=== PATIENT | female | born 1985 | race Caucasian/White ===

== ENCOUNTER → 2024-06-24 11:47 | Outpatient (REF) | payer BC, SELFPAY | LOC: RAD 11:47 | PROVIDERS: ATTENDING PHYSICIAN Nurse Practitioner Family | DX: R05.3 Chronic cough (principal) | CPT/HCPCS: 71046 ==

== ENCOUNTER → 2024-08-21 15:44 | Outpatient (REF) | payer BC, SELFPAY | LOC: PAVMRI 15:44 | PROVIDERS: ATTENDING PHYSICIAN Psychiatry & Neurology Neurology | DX: G43.909 Migraine, unspecified, not intractable, without status migrainosus (principal) | CPT/HCPCS: 70551 ==

== ENCOUNTER 2025-10-05 10:15 | Emergency (ER) | payer BC, SELFPAY ==
[2025-10-05 10:20] VITALS: BP 157/88; BMI 25.5
[2025-10-05 10:47] LABS: Hematocrit 33.3 % (37.0-47.0); Hemoglobin 10.7 g/dL (12.0-16.0); Mean Corp Hgb Conc. 32.1 g/dL (33.0-37.0); Mean Corpuscular Volume 63.3 fL (81.0-99.0); Nucleated Red Blood Cells % 0 %; Platelet Count 327 10^3/uL (130-400); Red Cell Dist. Width 16.3 % (11.5-14.5)
[2025-10-05 11:11] LABS: ALT (SGPT) 14 U/L (0-35); AST (SGOT) 20 U/L (14-36); Albumin 4.3 g/dl (3.5-5.0); Alkaline Phosphatase 42 U/L (38-126); Blood Urea Nitrogen 13 mg/dl (7-17); Calcium 9.4 mg/dl (8.4-10.2); Carbon Dioxide 28 mmol/L (22-30); Chloride 102 mmol/L (98-107); Estimated Creatinine Clearance 106 ml/min; Glucose 85 mg/dl (70-99); Lipase 47 U/L (23-300); Potassium 4.5 mmol/L (3.5-5.1); Sodium 133 mmol/L (135-145); Total Protein 7.3 g/dl (6.3-8.2); eGFR > 60.00
[2025-10-05 11:22] LABS: Troponin I < 0.012 ng/ml
--- NOTE | 2025-10-05 11:32 | ED.GENMED ---
History of Present Illness
General
Chief Complaint: Chest Pain
Source: patient
Exam Limitations: none
Time Seen by Provider: 10/05/25 11:01
History of Present Illness
History of Present Illness:
40yoF with a history of hypothyroidism, anemia, and mitral valve prolapse presenting for evaluation of chest pain. Symptoms began 3 days ago. She woke up in middle the night with nausea and dry heaving. Nausea has resolved but she continues to
have a central chest discomfort which is lingering. The discomfort is described as indigestion. Her pain radiates to the back. She has been taking Tums frequently at home without any significant improvement. She denies any shortness of breath,
fevers, leg swelling, calf pain. She called her PCP today and was told to go to the ED for evaluation.
Past History
Past History
ED Past Medical History: Psychiatric (ADHD), Other (Mitral valve prolapse) and Other (migraines)
ED Past Surgical History: Other (septoplasty, breast augmentation, tracheostomy as a )
Social History
Tobacco: Smoker
Alcohol: Occasional
Drug: None
Personal: Single
Living: with family
Employment: Employed
Family History
Family History: Other (No history of aortic dissection, PE or DVT); Negative Early CAD or CAD
Phy Exam
General Physical Exam
General Presentation: well appearing and no apparent distress
General age: appears stated age
General Skin: warm and dry
General Habitus: normal
General Mental: alert
ENT Exam
ENT Exam: normocephalic
Cardiovascular Exam
Cardiovascular Exam: regular rate/rhythm, no edema, no murmur and normal peripheral pulses (2+ radial pulses bilaterally)
Pulmonary Exam
Pulmonary Exam: lungs clear, no respiratory distress, no rales, no crackles, no rhonchi and no wheezing
Gastrointestinal Exam
Gastrointestinal Exam: non tender, soft and non distended
Neurological Exam
Neurological Exam: alert
Cecilia Coma Scale
Eye Opening: Spontaneous
Verbal Response: Oriented
Motor Response: Obeys Commands
GCS Total Score: 15
Skin Exam
Skin Exam: normal color and warm/dry
Psychiatric Exam
Psychiatric Exam: normal mood/affect
Scores
Heart Score for Chest Pain Patients
STEMI patient?: No
History: Slightly or Non-Suspicious
ECG: Normal
Age: </= 45 years
Risk Factors: No Risk Factors
Troponin: </= Normal Limit
Heart Score for Chest Pain Patients: 0
Heart Score Risk: 2.5% MACE over next 6 weeks
Course
Orders/Labs/Results
Orders:
Orders
10/05/25 10:17
EKG- Treatment ONCE
10/05/25 10:20
EKG [Electrocardiogram (*1)] Urgent
Reason for Study: Chest Pain
EKG- Treatment ONCE
10/05/25 10:34
Complete Blood Count/With Diff Urgent
Comprehensive Metabolic Panel Urgent
Lipase Urgent
Troponin I Urgent
10/05/25 11:47
Cardiac Monitoring- Treatment ONCE
Famotidine [Pepcid] 20 mg PO NOW STA
10/05/25 11:48
Mag Hydrox/Al Hydrox/Simeth [Maalox] 30 ml PO NOW STA
Viscous Lidocaine 2% [Xylocaine Viscous Cup] 15 ml PO ONCE ONE
10/05/25 11:55
D-Dimer Urgent
Abnormal Lab Results
10/05/25
10:34
Hgb 10.7 L g/dL
(12.0-16.0)
Hct 33.3 L %
(37.0-47.0)
MCV 63.3 L fL
(81.0-99.0)
MCH 20.3 L pg
(27.0-31.0)
MCHC 32.1 L g/dL
(33.0-37.0)
RDW 16.3 H %
(11.5-14.5)
Absolute Monos (auto) 0.8 H 10^3/uL
(0.1-0.6)
Monocytes % 10.9 H %
(1.7-9.3)
Sodium 133 L mmol/L
(135-145)
10/05/25 10:34
10/05/25 10:34
Vital Signs
Initial and Last Documented VS:
Initial Vital Signs
Temp Pulse Resp BP Pulse Ox
98 F 96 18 157/88 98
10/05/25 10:20 10/05/25 10:20 10/05/25 10:20 10/05/25 10:20 10/05/25 10:20
Last Documented Vital Signs
Temp Pulse Resp BP Pulse Ox
98.6 F 78 17 120/76 99
10/05/25 14:11 10/05/25 14:11 10/05/25 14:11 10/05/25 14:11 10/05/25 14:11
MDM/Problems Addressed
Differential Diagnosis Includes:
40yoF here with chest pain. Started with nausea and dry heaving 3 days ago. Now with lingering chest discomfort/indigestion which radiates to back. VSS. She is well appearing in no distress. Exam reassuring. Differential diagnosis includes: GERD,
esophagitis, ACS, PE, less likely aortic dissection
Initial ED plan: Workup initiated in triage. EKG shows NSR without ischemic changes and troponin undetectable. LFTs and lipase normal. Will check D-dimer and CXR vs. CT depending on results. GI cocktail and reassess.
*Pulse Oximetry
SaO2: 98
Oxygen Mode of Delivery: Room air
Patient hypoxic: no
*EKG
Interpreted by ED Provider?: Yes
EKG Intrepretation Date: 10/05/25
Heart Rate: 80
Rate: normal
Rhythm: sinus
[place]: normal axis
Interval: normal interval
QRS Pattern: normal QRS
Ischemia: no ischemia
*Critical Care Note
Total Time (30-74mins, 75-104mins- exclusive of procedures): Not Applicable
Update Note
Update Note:
D-dimer normal making PE and aortic dissection highly unlikely. CXR initially ordered although I was informed by nursing staff that patient is declining this. On reassessment, symptoms have completely resolved after GI cocktail which suggests
esophagitis vs. GERD as cause of her pain. Patient stable for discharge. She was advised to f/u with PCP and GI. ED return precautions reviewed.
ED Attending Note
-
Portions of this chart may have been created with voice recognition software.� Occasional wrong word or��sound alike� substitutions may have occurred due to the inherent limitations of voice recognition software.
Discharge Plan
Departure
Patient Disposition: Home (Routine Discharge)
Date of Disposition: 10/05/25
Time of Disposition: 13:40
Patient with high blood pressure during this ER visit?: Yes
Discharge Problem:
Chest pain
Instructions: Chest Pain PCP Follow Up
Prescriptions:
No Action
PNV no.95-ferrous fumarate-FA [] 1 EACH tablet
1 ea PO DAILY
Levothyroxine Tab
50 mcg PO DAILY
sennosides-docusate sodium 1 TABLET tablet
1 tab PO DAILYPRN PRN (Reason: constipation) 0RF
ibuprofen 600 MG tablet
600 mg PO Q4HPRN PRN (Reason: cramps) 0RF
acetaminophen 325 MG tablet
650 mg PO Q4HPRN PRN (Reason: mild pain) 0RF
citalopram [Celexa] 20 mg Tablet
20 mg PO DAILY
methylphenidate HCl [Concerta] 54 mg Tablet Extended Release 24hr
54 mg PO DAILY
Referrals:
Aaron Mcbride MD [Active, Gastroenterology]
Nette Frye MD [Family Provider, [facility]]
Activity Restrictions/Additional Instructions:
Take Maalox as needed. You may also take Pepcid 20 mg twice a day as needed for reflux.
Please follow-up with your family doctor and gastroenterology. Return to the ER with any new or worsening symptoms.
Interventions
Interventions:
*Risk Screen - Suicide Last Done: 10/05/25 10:20
*General Assessment Last Done: 10/05/25 10:20
*Neglect/Abuse Screening Last Done: 10/05/25 14:11
*ED- Fall Risk Assessment Last Done: 10/05/25 10:20
*ED COVID-19 Vaccine History Last Done: 10/05/25 10:20
*ED Influenza Vaccine History Last Done: 10/05/25 10:20
*Nursing Disposition Last Done: 10/05/25 14:11
ED- Cardiac Assessment Last Done: 10/05/25 11:37
Discharge Date and Time
Discharge Date/Time: 10/05/25 14:12
Print Language: DANISH
[2025-10-05] MEDS: MAALOX 30 ML PO (12:01)
[2025-10-05] MEDS: PEPCID 20 MG PO (12:01)
[2025-10-05] MEDS: XYLOCAINE VISCOUS CUP 15 ML PO (12:01)
[2025-10-05 12:54] LABS: D-Dimer 0.29 ug/mlFEU (0.00-0.50)
[2025-10-05 14:11] VITALS: BP 120/76
== END 2025-10-05 14:12 | disposition home or self-care (01) ==
LOC: EMR 10:15
PROVIDERS: Physician Assistant; EMERGENCY PHYSICIAN Emergency Medicine; FAMILY PHYSICIAN Family Medicine
DX: R07.9 Chest pain, unspecified (principal); E03.9 Hypothyroidism, unspecified; I34.1 Nonrheumatic mitral (valve) prolapse; F17.200 Nicotine dependence, unspecified, uncomplicated
CPT/HCPCS: 99284; 80053; 83690; 84484; 85025; 85379; 93005